=== PATIENT | female | born 1995 ===

== ENCOUNTER 2020-12-25 22:26 | Emergency (ER) | payer OTHER ==
[~2020-12-25] VITALS: Ht 165.1 cm; Wt 86.2 kg
== END 2020-12-26 00:21 | disposition home or self-care (01) ==
LOC: ER 22:26
DX: S61.210A Laceration without foreign body of right index finger without damage to nail, initial encounter (principal); Z88.8 Allergy status to other drugs, medicaments and biological substances; W45.8XXA Other foreign body or object entering through skin, initial encounter; Y92.89 Other specified places as the place of occurrence of the external cause; Y99.0 Civilian activity done for income or pay
CPT/HCPCS: 12002; 99282-25

== ENCOUNTER 2021-01-02 18:11 | Emergency (ER) | payer OTHER ==
[~2021-01-02] VITALS: Ht 165.1 cm; Wt 83.9 kg
== END 2021-01-02 19:23 | disposition left against medical advice (07) ==
LOC: ER 18:11
DX: Z53.21 Procedure and treatment not carried out due to patient leaving prior to being seen by health care provider (principal)

== ENCOUNTER 2021-08-16 21:23 | Emergency (ER) | payer OTHER ==
[~2021-08-16] VITALS: Ht 165.1 cm; Wt 83.9 kg
[2021-08-16] MEDS ORDERED: QUETIAPINE FUM PO (22:16)
[2021-08-16] MEDS ORDERED: Lamictal150 MG PO (22:17)
== END 2021-08-16 23:05 | disposition home or self-care (01) ==
LOC: ER 21:23
DX: R07.89 Other chest pain (principal); T50.B95A Adverse effect of other viral vaccines, initial encounter; Z88.8 Allergy status to other drugs, medicaments and biological substances; Z79.899 Other long term (current) drug therapy
CPT/HCPCS: 93005; 93010; 99283-25

== ENCOUNTER → 2023-05-06 | Outpatient (CLI) | payer BC | LOC: LAB 10:00 | DX: Z01.419 Encounter for gynecological examination (general) (routine) without abnormal findings (principal) ==

== ENCOUNTER → 2023-06-18 | Outpatient (CLI) | payer BC ==
[~2023-06-18] MED LIST: Lamictal150 MG PO; QUETIAPINE FUM PO
== END | disposition home or self-care (01) ==
LOC: LAB 11:16 → LAB SHORT 11:16
DX: N87.1 Moderate cervical dysplasia (principal)
CPT/HCPCS: 88305

== ENCOUNTER 2023-08-11 12:10 | Day surgery (SDC) | payer BC ==
[~2023-08-11] VITALS: Ht 165.1 cm; Wt 115.1 kg
[~2023-08-11 12:10] MED LIST changes: +ALBU90OI INH; +HYDHCL25; +IMITREX50 M1; +LAMO100; +NAPR550 PO; +PRAZ1; +Prozac20 MG PO; +TRANSDERM-SCOP1 EA13; +VRAYLAR3 MG
--- NOTE | 2023-08-11 12:56 | NUR ---
08/11/23 1256 Dorene Aviles PT COMFORTABLE IN BED WITH PERSONAL CELL PHONE. SPOUSE MAURICIO AND FRIEND GRISEL IN ROOM. CALL LIGHT WITHIN REACH. BED IN LOWEST POISITION
--- NOTE | 2023-08-11 16:11 | NUR ---
08/11/23 1611 Abbie Vegas 15ML OF LIDOCAINE 1% MIXED WITH 5 UNITS OF VASOPRESSIN TO MAKE LOCAL FOR INJECTION AT THE OPSITE BY DR GOLDBERG.
--- NOTE | 2023-08-11 17:04 | NUR ---
08/11/[address] EMO IN TO SPEAK WITH PATIENT.
[2023-08-11 17:47] VITALS: BP 112/77
--- NOTE | 2023-08-11 17:48 | NUR ---
08/11/23 1748 MARIANA PECK PT REQUESTED PO OXYCODONE FOR PAIN FOR RIDE HOME. PAIN WAS 8.5/10 WHEN CAME OUT OF OR. CURRENTLY 12/12
== END 2023-08-11 17:58 | disposition home or self-care (01) ==
LOC: ORSCSDS 12:10
PROVIDERS: Obstetrics & Gynecology
PROC: 0UPD7HZ Removal of Contraceptive Device from Uterus and Cervix, Via Natural or Artificial Opening (ICD-10-PCS; principal; 2023-08-11 13:30)
PROC: 0UBC7ZX Excision of Cervix, Via Natural or Artificial Opening, Diagnostic (ICD-10-PCS; principal; 2023-08-11 13:30)
DX: N87.1 Moderate cervical dysplasia (principal); Z30.8 Encounter for other contraceptive management; E66.01 Morbid (severe) obesity due to excess calories; Z68.41 Body mass index [BMI] 40.0-44.9, adult; Z79.899 Other long term (current) drug therapy; F31.9 Bipolar disorder, unspecified; F41.8 Other specified anxiety disorders; F42.9 Obsessive-compulsive disorder, unspecified; J45.909 Unspecified asthma, uncomplicated
CPT/HCPCS: 88305; A9270; J1885; J2250; J2405; J2704; J3010; J7297

== ENCOUNTER → 2024-04-01 | Outpatient (CLI) | payer SELFPAY ==
[2024-04-01 15:14] LABS: Candida Group, PCR NOT DETECTED (NOT DETECT)
[2024-04-01 15:16] LABS: Bacterial Vaginosis PCR Positive (NEGATIVE); Candida glabrata-krusei, PCR DETECTED (NOT DETECT)
[2024-04-10 08:02] LABS: HPV HIGH RISK BY TMA Not Detected; HPV SOURCE Cervical/Vag
== END | disposition home or self-care (01) ==
LOC: LAB 12:52 → LAB SHORT 12:52
PROVIDERS: Obstetrics & Gynecology
DX: N89.8 Other specified noninflammatory disorders of vagina (principal); R87.618 Other abnormal cytological findings on specimens from cervix uteri
CPT/HCPCS: 87481; 87624; 87661; 87801; G0123

== ENCOUNTER → 2024-11-15 | Outpatient (CLI) | payer SELFPAY | END | disposition home or self-care (01) | LOC: PLD 07:43 → LAB SHORT 07:43 | DX: D48.5 Neoplasm of uncertain behavior of skin (principal) | CPT/HCPCS: 88305 ==

== ENCOUNTER 2024-11-24 05:11 | Emergency (ER) | payer BC ==
[~2024-11-24] VITALS: Ht 165.1 cm; Wt 127.0 kg
[2024-11-24] MEDS ORDERED: Ipratropium/Albuterol SulF 2.5-0.5MG/3 ML Amp INH ONE (05:45)
[2024-11-24] MEDS ORDERED: Dexamethasone Sod Phos 10 MG/ML 1ML VIAL PO ONE (05:45)
[2024-11-24] MEDS ORDERED: EPINEPHrine HCL 11.25 MG/0.5 ML VIAL INH ONE (06:40)
[2024-11-24] MEDS ORDERED: Ketorolac Tromethamine 30mg Vial IV ONE (06:40)
[2024-11-24 07:21] LABS: BASOPHILS ABSOLUTE AUTO 0.08 K/mm3 (0.00-0.23); BASOPHILS PERCENT AUTO 1 % (0-2); EOSINOPHILS ABSOLUTE AUTO 0.02 K/mm3 (0.00-0.68); EOSINOPHILS PERCENT AUTO 0 % (0-6); Hematocrit 40.5 % (33.0-51.0); Hemoglobin 14.1 g/dL (11.5-16.0); IMMATURE GRAN ABSOLUTE AUTO 0.03 K/mm3 (0.00-0.10); IMMATURE GRAN PERCENT AUTO 0 % (0-1); LYMPHOCYTES ABSOLUTE AUTO 2.55 K/mm3 (0.84-5.20); LYMPHOCYTES PERCENT AUTO 36 % (21-46); MONOCYTES ABSOLUTE AUTO 0.56 K/mm3 (0.16-1.47); MONOCYTES PERCENT AUTO 8 % (4-13); Mean Corpuscular HGB 31.8 pg (26.0-34.0); Mean Corpuscular HGB Conc 34.8 g/dL (31.5-36.5); Mean Corpuscular Volume 91 fL (80-100); Mean Platelet Volume 9.8 fL (9.1-12.4); NEUTROPHILS PERCENT AUTO 54 % (41-73); Platelet Count 295 K/mm3 (150-400); RDW Standard Deviation 43.6 fL (35.1-46.3); Red Blood Cell Count 4.44 M/mm3 (3.80-5.20); White Blood Cell Count 7.04 K/mm3 (4.00-11.30)
[2024-11-24 07:32] LABS: Albumin, Blood 3.7 g/dL (3.4-5.0); Albumin/Globulin Ratio 1.1 (0.8-1.8); Bilirubin, Total 0.4 mg/dL (0.1-1.0); Bun/Creatinine Ratio 10.4 (12.0-20.0); Calcium, Blood 8.9 mg/dL (8.5-10.1); Creatinine, Blood 1.06 mg/dL (0.40-1.00); Globulin, Blood 3.3 g/dL (2.2-4.0); Potassium, Blood 3.7 mmol/L (3.5-5.5)
[2024-11-24 07:45] VITALS: BP 124/83
[2024-11-24] MEDS ORDERED: Morphine Sulfate 4 MG/1 ML Injection IV ONE (08:50)
[2024-11-24] MEDS ORDERED: Amoxicillin 250 MG/5 ML UDC 5ML BTL PO ONE (08:50)
[2024-11-24] MEDS ORDERED: Morphine Sulfat15 MG PO (10:02)
[2024-11-24] MEDS ORDERED: AMOX500 PO (10:02)
[2024-11-24] MEDS ORDERED: DEXA2 PO (10:04)
== END 2024-11-24 10:27 | disposition home or self-care (01) ==
LOC: ER 05:11
PROVIDERS: Student in an Organized Health Care Education/Training Program
DX: K12.2 Cellulitis and abscess of mouth (principal); J06.9 Acute upper respiratory infection, unspecified; G43.909 Migraine, unspecified, not intractable, without status migrainosus; Z79.899 Other long term (current) drug therapy; Z88.5 Allergy status to narcotic agent
CPT/HCPCS: 70491; 80053; 85025; 87081; 87430; 94640; 94664; 96374; 96375; 99284-25; A9270; J1100; J1885; J2270; Q9967

== ENCOUNTER → 2025-01-06 | Outpatient (CLI) | payer BC ==
[~2025-01-06] MED LIST changes: +AMOX500 PO; +DEXA2 PO; +Morphine Sulfat15 MG PO
== END ==
LOC: LAB SHORT 17:51 → LAB 17:51
DX: J02.9 Acute pharyngitis, unspecified (principal)
CPT/HCPCS: 87081